=== PATIENT | female | born 1995 | race Caucasian/White ===

== ENCOUNTER 2021-02-28 11:26 | Emergency (ER) | payer SELFPAY ==
--- NOTE | 2021-02-28 13:22 | NUR ---
NA X 3 [phone], 1305, 1322
== END 2021-02-28 13:24 | disposition left against medical advice (07) ==
LOC: ED 12:00
DX: M25.532 Pain in left wrist (principal); Z53.21 Procedure and treatment not carried out due to patient leaving prior to being seen by health care provider